=== PATIENT | female | born 1950 | race Caucasian/White ===

== ENCOUNTER 2018-01-05 13:03 | Outpatient (REF) | payer MEDICARE, BC, SELFPAY ==
[2018-01-07 11:45] LABS: HBs Antibody, Quant 43.8 mIU/mL; Hepatitis B Surface Ab Positive
[2018-01-07 12:32] LABS: Measles IgG Antibody Positive; Mumps Antibody IgG Negative (Negative); Rubella IgG Ab (UVM) Positive; Varicella IgG Antibody Positive
== END 2018-01-05 13:23 ==
LOC: NCHCN 13:03
PROVIDERS: PCP Family Medicine
DX: Z02.1 Encounter for pre-employment examination (principal); Z01.84 Encounter for antibody response examination
CPT/HCPCS: 86706; 86787; 86735; 86762; 86765

== ENCOUNTER 2018-02-15 08:13 | Day surgery (SDC) | payer MEDICARE, BC, SELFPAY ==
--- NOTE | 2018-02-15 06:25 | W.COLOREPORT ---
Date of service: 02/15/18 Time of Service: 09: Colonoscopy Report Date of procedure: 02/15/18 Pre-op diagnosis general: Colon Cancer screening/ Hx of polyps Post-op diagnosis procedure note: other (polyps x2) Procedure: Colonoscopy with polypectomy with cold forceps Surgeon: Sherri Cohn Anesthesia proc note operative: MAC (Cailin Hernandez CRNA/ ASA 2) Estimated blood loss (mL): 3 Pathology: other (ascending colon polyps x 2) Complications: None Disposition: same day Indications: Mrs. Bhagat is a pleasant 67-year-old female who was seen in the office for a colonoscopy. Risks, benefits and complications were reviewed with her and she wished to proceed no guarantees were given or implied Prep: Miralax/Dulcolax Procedure Start Time: : Procedure End Time: : Retraction Time: 16 Findings: 2 small sessile polyps in the ascending polyp Procedure Description: After informed consent was obtained the patient was taken to the procedure room and placed in a left decubitous position. Monitors were applied and a time out was done. The patients name, date of , procedure, allergies to medications and metal in their body was reviewed. The patient was then sedated. Once sedated and comfortable a rectal exam was done. External exam was normal. Internal exam revealed a normal sphincter tone and no palpable masses. The scope was then introduced and retro-flexed. No internal hemorrhoids were identified. The scope was then advanced to the cecum without difficulty. The TI and appendiceal orifice were identified. The prep was good. The scope was then slowly retracted over 16 minutes back into the rectum. 2 polyps were removed with cold forceps in the ascending colon. The scope was removed and the patient was woken up and taken back to Same day surgery in stable condition. The patient tolerated the procedure well and there were no immediate complications. Follow up: The patient should follow up in 3-5 years unless they develop changes in bowel habits or other new gastrointestinal complaints.
--- NOTE | 2018-02-15 06:27 | PDOC.DSDIS_ITS ---
Discharge Plan Disposition Patient Disposition: HOME Condition: Good Discharge Details Reason For Visit: Colonoscopy Attending Provider: Sherri Cohn Primary Care Provider: Michaela Garcia Home Meds and New Rx's Prescriptions: Continue calcium carbonate-vitamin D3 [Calcium 500 + D] 500 mg(1,250mg) -400 unit tablet 1 tab PO DAILY RF: 0 cholecalciferol (vitamin D3) 2,000 unit tablet 2,000 unit PO DAILY RF: 0 omega-3 fatty acids 1,000 MG capsule 1,000 mg PO DAILY RF: 0 vitamin B complex 1 EACH tablet 1 ea Sublingual DAILY RF: 0 multivitamin [Daily Multiple] 1 EACH tablet 1 ea PO DAILY RF: 0 Discontinued bisacodyl [Dulcolax (bisacodyl)] 5 mg tablet,delayed release (DR/EC) 5 mg PO ONCE Qty: 4 RF: 0 polyethylene glycol 3350 17 gram/dose powder 255 g PO ONCE Qty: 255 RF: 0 peg 3350-electrolytes 4,000 ML recon soln 4,000 ml PO as directed Qty: 4000 RF: 0 Discharge Instructions Instructions: Colonoscopy (DC) Additional Instructions: Findings: 2 small polyps Follow up: 3-5 years depending on final pathology Please call if you develop: fevers >101.5 Nausea or vomiting Abdominal pain that is not transient DAY SURGERY UNIT POST COLONOSCOPY INSTRUCTIONS 1. Because there will be medication in your system for the next 24 hours, you may feel a little sleepy. Your coordination will be affected. Therefore: a. Do not drive or operate dangerous equipment for 24 hours. b. Do not drink alcohol beverages for 24 hours (not even beer). c. Plan to go home and rest for the day. 2. Generally there are no restrictions on your activity after a day or so has gone by, but you may feel a bit fatigued for a few days. 3 After you arrive home you may have a light meal and return to a normal diet as you can tolerate it without feeling sick to your stomach. 4. After surgery, you may feel pain or discomfort. This should be only transient , but if it persists please contact your doctor. 5. If there are any questions regarding the findings of your procedure, please feel free to contact your doctor. 6. If you are unable to contact your doctor with a problem, contact the hospital at [phone]. 7. Continue all your regular medications unless directed otherwise. I understand the above instructions and have no questions. Signature of Patient or Responsible Adult Escort Date/Time Name of Responsible Adult Escort Signature of Nurse Date/Time Activity:: Activity as Tolerated Diet:: As Tolerated Discharge Orders Discharge Orders: Discharge Order (Routine); Ordered 02/15/18 Ordered By: Sherri Cohn DS: Diagnosis Discharge Diagnosis (1) Colon polyp: Status: Acute (2) S/P colonoscopy: Status: Acute
[2018-02-15 08:21] VITALS: BP 94/61; PULSE 80; RESP 16; TEMP 36.4; O2SAT 98
[2018-02-15] MEDS: Lactated Ringers 1,000 ML 80 ML IV (08:52)
--- NOTE | 2018-02-15 09:13 | BOWEL_PTH ---
PATIENT: Mallory Bhagat LOC: [facility] U#:[id number] AGE/SX: 67/F ROOM: RE02/15/[address]: Sherri Cohn MD : 1950 BED: DIS: 02/15/2018 SPEC #: [id number] RECD: 02/15/18 12:22 STATUS: JOSE ALBERTO REQ #: [id number] MYRA: 02/15/18 09:[address]: Sherri Cohn DEPT: Surgical Specimen RECD BY: Edilma Brenner ENTERED: 02/15/18 12:22 SP TYPE: Bowel OTHR DR: Michaela Garcia MD, DC Tissues: 1 - BIOPSY BOWEL Procedures: GROSS AND MICRO LEVEL 4 Comments: [id number]
[2018-02-15 10:02] VITALS: BP 134/78; PULSE 64; RESP 18; TEMP 36.6; O2SAT 100
[2018-02-15 10:04] VITALS: BP 134/78; PULSE 64; RESP 18; TEMP 36.6; O2SAT 100
== END 2018-02-15 10:18 | disposition home or self-care (01) ==
LOC: SUR 08:14
PROVIDERS: PCP Family Medicine; Visit Provider Surgery
PROC: 0DJD8ZZ Inspection of Lower Intestinal Tract, Via Natural or Artificial Opening Endoscopic (ICD-10-PCS; CPT 45378; principal; 2018-02-15 09:30)
DX: Z12.11 Encounter for screening for malignant neoplasm of colon (principal); D12.2 Benign neoplasm of ascending colon; Z86.010 Personal history of colon polyps
CPT/HCPCS: 45380; 88305

== ENCOUNTER 2018-05-26 13:46 | Emergency (ER) | payer MEDICARE, BC, SELFPAY ==
[2018-05-26 13:46] VITALS: BP 104/66; PULSE 77; RESP 16; TEMP 36.3; O2SAT 97
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
[2018-05-26 14:03] VITALS: BP 104/66; PULSE 77; RESP 16; TEMP 36.3; O2SAT 97
== END 2018-05-26 14:05 | disposition home or self-care (01) ==
LOC: ER 14:16
PROVIDERS: Emergency Provider Student in an Organized Health Care Education/Training Program; PCP Family Medicine
DX: T17.928A Food in respiratory tract, part unspecified causing other injury, initial encounter (principal); R09.89 Other specified symptoms and signs involving the circulatory and respiratory systems
CPT/HCPCS: 99283

== ENCOUNTER 2018-10-13 07:47 | Emergency (ER) | payer MEDICARE, BC, SELFPAY ==
[2018-10-13 07:51] VITALS: BP 107/58; PULSE 75; RESP 20; TEMP 36.4; O2SAT 99
--- NOTE | 2018-10-13 08:07 | DI.COMBO_ITS ---
SYMPTOM/DIAGNOSIS: POSTERIOR PAIN AND SWELLING LEFT LOWER EXTREMITY ULTRASOUND: The femoral and popliteal veins and visualized calf veins are freely compressible. No thrombus is visible. The doppler venous wave form augments normally. No Torrez's cyst or hematoma is seen. IMPRESSION: Negative left lower extremity ultrasound. No evidence of DVT. LEFT KNEE: No fracture or joint effusion is seen. The joint spaces are well maintained. There are no significant degenerative changes. IMPRESSION: Negative left knee.
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
[2018-10-13] MEDS: Acetaminophen 500 MG TAB 1000 MG PO (08:14)
[2018-10-13 09:35] VITALS: BP 107/58; PULSE 75; RESP 20; TEMP 36.4; O2SAT 99
== END 2018-10-13 09:36 | disposition home or self-care (01) ==
PROVIDERS: Emergency Provider Emergency Medicine; PCP Family Medicine
DX: M76.52 Patellar tendinitis, left knee (principal)
CPT/HCPCS: 73562; 99284; 93971

== ENCOUNTER 2019-11-12 15:41 | Emergency (ER) | payer MEDICARE, BC, SELFPAY ==
[2019-11-12 15:44] VITALS: BP 116/73; PULSE 76; RESP 20; TEMP 36.8; O2SAT 98
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
== END 2019-11-12 20:45 | disposition home or self-care (01) ==
LOC: ER 19:15
PROVIDERS: Emergency Provider Student in an Organized Health Care Education/Training Program; PCP Family Medicine
DX: S01.82XA Laceration with foreign body of other part of head, initial encounter (principal); S09.8XXA Other specified injuries of head, initial encounter; V43.53XA Car driver injured in collision with pick-up truck in traffic accident, initial encounter
CPT/HCPCS: 12011; 99284; 70450; 72125

== ENCOUNTER 2019-11-18 19:03 | Outpatient (CLI) | payer MEDICARE, BC, SELFPAY ==
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
== END 2019-11-18 19:23 ==
PROVIDERS: PCP Family Medicine; Visit Provider Nurse Practitioner Family
DX: R07.89 Other chest pain (principal)
CPT/HCPCS: 71046; 71110

== ENCOUNTER 2019-11-25 11:20 | Emergency (ER) | payer MEDICARE, BC, SELFPAY ==
[2019-11-25 11:23] VITALS: BP 111/63; PULSE 74; RESP 20; TEMP 36.6; O2SAT 98
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
[2019-11-25] MEDS: ACETAMINOPHEN 1,000 MG/100 ML BTL 400 MG IVPB (12:02)
[2019-11-25 12:03] VITALS: RESP 18
[2019-11-25 12:03] LABS: Anion Gap 10.1 mmol/L (3-11); BUN 17 mg/dL (7-18); CO2 25.9 mmol/L (21.0-32.0); CREATININE 0.88 mg/dL (0.55-1.02); Calcium 9.6 mg/dL (8.5-10.1); Chloride 103 mmol/L (98-107); Glucose 96 mg/dL (74-106); Potassium 4.2 mmol/L (3.5-5.1); Sodium 139 mmol/L (136-145)
[2019-11-25 12:08] LABS: Abs Immature Grans 0.01 10^3/uL (0.0-0.06); Absolute Basophil Count 0.03 10^3/uL (0.0-0.2); Absolute Eosinophil Count 0.11 10^3/uL (0.0-0.7); Absolute Lymphocyte Count 1.87 10^3/uL (1.2-3.4); Absolute Monocyte Count 0.41 10^3/uL (0.1-0.8); Absolute Neutrophil Count 2.09 10^3/uL (1.2-6.7); Basophils % 0.7; Eosinophils % 2.4; HCT 41.5 % (36.0-46.0); HGB 13.6 g/dL (11.2-15.7); Immature Grans % 0.2; Lymphocytes % 41.4; MCH 29.4 pg (27.0-33.0); MCHC 32.8 % (32.0-36.0); MCV 89.6 fL (80-95); MPV 10.7 fL (8.0-11.0); Monocytes % 9.1; Neutrophils % 46.2; Nucleated RBC 0 %; Platelet Count 244 10^3/uL (130-400); RBC 4.63 10^6/uL (3.93-5.22); RDW 13.7 % (11.7-14.6); RDW-SD 44.9 fL; WBC 4.52 10^3/uL (4.4-10.8)
[2019-11-25 12:49] VITALS: BP 94/64; PULSE 88; O2SAT 100
[2019-11-25 13:56] VITALS: BP 112/78; PULSE 56; RESP 18; O2SAT 100
== END 2019-11-25 14:10 | disposition home or self-care (01) ==
PROVIDERS: Emergency Provider Emergency Medicine; PCP Family Medicine
DX: S22.31XA Fracture of one rib, right side, initial encounter for closed fracture (principal); V43.53XA Car driver injured in collision with pick-up truck in traffic accident, initial encounter; R06.02 Shortness of breath
CPT/HCPCS: 36415; 80048; 96375; 99285; 71260; 85025; 99284; J0131

== ENCOUNTER 2019-12-05 01:54 | Outpatient (CLI) | payer MEDICARE, BC, SELFPAY ==
--- NOTE | 2019-12-05 08:15 | DI.US_ITS ---
EXAM: US THYROID CLINICAL HISTORY: 14mm right thyroid lobe lesion on cervical CT,E04.1. TECHNIQUE: Ultrasound thyroid performed using standard protocol. COMPARISON: No exams were available for comparison FINDINGS: ISTHMUS: 4 mm RIGHT LOBE: Size: 5.2 x 1.8 x 1.5 cm Echogenicity: Normal. Vascularity: Normal. Nodules: 2.3 x 1.3 x 1.8 centimeter mostly isoechoic smoothly marginated nodule with central spongifo rm appearance. No vascularity.. LEFT LOBE: Size: 4.7 x 1.5 x 1.4 cm Echogenicity: Normal. Vascularity: Normal. Nodules: None. OTHER FINDINGS: None. IMPRESSION: 2.3 centimeter benign appearing nodule at the lower pole of the right lobe thyroid. TI- RADS category 2. DATA REPOSITORY:
== END 2019-12-05 02:14 ==
PROVIDERS: PCP Family Medicine; Visit Provider Nurse Practitioner Family
DX: E04.1 Nontoxic single thyroid nodule (principal)
CPT/HCPCS: 76536

== ENCOUNTER 2019-12-05 03:03 | Outpatient (CLI) | payer MEDICARE, BC, SELFPAY | END 2019-12-05 03:23 | PROVIDERS: Nurse Practitioner Family; PCP Family Medicine; Visit Provider Family Medicine | DX: E04.1 Nontoxic single thyroid nodule (principal) | CPT/HCPCS: 36415; 76536; 84443 ==

== ENCOUNTER 2020-01-02 11:16 | Outpatient (REF) | payer SELFPAY ==
[2020-01-03 20:50] LABS: COVID-19 RT-PCR Result NEGATIVE (Negative)
== END 2020-01-02 11:36 ==
LOC: NCHCN 11:16
PROVIDERS: PCP Family Medicine; Visit Provider Nurse Practitioner Family
DX: Z20.828 Contact with and (suspected) exposure to other viral communicable diseases (principal)
CPT/HCPCS: U0003

== ENCOUNTER 2020-02-20 00:24 | Outpatient (CLI) | payer MEDICARE, BC, SELFPAY ==
--- NOTE | 2020-02-20 06:45 | DI.MAMMO_ITS ---
EXAM: MG MAMMO SCREENING CLINICAL HISTORY: screening,z12.39. TECHNIQUE: Bilateral full field digital CC and MLO mammographic images were obtained with 3D tomosyn thesis and utilizing computer aided detection (CAD). COMPARISON: Prior mammograms dating back to 2010, the most recent being October 2015. FINDINGS: Microcalcifications in the right breast exhibiting CAD designation appear vascular and were previousl y present. There are no spiculated masses nor malignant appearing microcalcification groups. Benign-appearing ly mph node posteriorly in left breast is unchanged. There is no significant architectural distortion n or skin thickening-retraction. IMPRESSION: Stable benign findings. No radiographic evidence of malignancy. BI-RADS Category 2 - Benign Findings Breast Density - Category B - Scattered areas of fibroglandular density Breast density Category C or D implies that the patient has dense breast tissue. Dense breast tissue can make it harder to find cancer on a mammogram. Dense breast tissue is also associated with an incr eased risk of breast cancer. This information about the result of the mammogram report was provided to the patient to raise their awareness. Use this report when you speak with the patient about their risks for breast cancer, which includes their family history. At that time, you may recommend additional screening tests (Ultrasoun d or MRI) as these tests may add significant information. A negative radiographic report should not delay biopsy if a dominant or clinically suspicious mass is present. Up to ten percent of cancers are not identified on mammography. A negative report may reinforce clinical impression. Adenosis and dense breasts may obscure an underlying neoplasm. False positive reports average 6 to 10%. Patient will receive a letter notifying them of these results.
== END 2020-02-20 00:44 ==
PROVIDERS: PCP Family Medicine; Visit Provider Family Medicine
DX: Z12.31 Encounter for screening mammogram for malignant neoplasm of breast (principal); R92.0 Mammographic microcalcification found on diagnostic imaging of breast
CPT/HCPCS: 77063; 77067

== ENCOUNTER 2020-04-19 10:01 | Emergency (ER) | payer MEDICARE, BC, SELFPAY ==
--- NOTE | 2020-04-19 10:00 | RT.EKG_ITS ---
APPROVED REPORT Exam: Resting ECG Patient Location: E HR:61 bpm ECG Measurements Heart Rate 61 AXIS SD 155 P 34 QRSd 103 QRS 9 QT 437 T 37 QTc 440 Conclusion Sinus rhythm...normal P axis, V-rate 60- 99
[2020-04-19 10:16] VITALS: BP 107/66; PULSE 67; RESP 18; TEMP 36.1; O2SAT 100
--- NOTE | 2020-04-19 10:29 | DI.RAD_ITS ---
EXAM: XR KNEE RT 3V AP,LAT,NICKI CLINICAL HISTORY: near syncope. TECHNIQUE: 2D digital imaging was performed. COMPARISON: CR XR knee LT 3V AP,lat,incki from 10/13/2018 FINDINGS: BONES: No acute fracture is present. No bony destructive lesion is seen. JOINTS: The knee is normally aligned. No joint effusion is seen. SOFT TISSUE: Normal. IMPRESSION: Unremarkable radiographs of the right knee. DATA REPOSITORY: RADIATION DOSE DELIVERED:
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
[2020-04-19 10:53] LABS: Abs Immature Grans 0.01 10^3/uL (0.0-0.06); Absolute Basophil Count 0.03 10^3/uL (0.0-0.2); Absolute Lymphocyte Count 1.65 10^3/uL (1.2-3.4); Absolute Monocyte Count 0.31 10^3/uL (0.1-0.8); Absolute Neutrophil Count 2.33 10^3/uL (1.2-6.7); Basophils % 0.7; Eosinophils % 2.3; HCT 37.7 % (36.0-46.0); Immature Grans % 0.2; Lymphocytes % 37.2; MCH 28.5 pg (27.0-33.0); MCHC 31.8 % (32.0-36.0); MCV 89.5 fL (80-95); MPV 10.3 fL (8.0-11.0); Neutrophils % 52.6; Nucleated RBC 0 %; Platelet Count 229 10^3/uL (130-400); RBC 4.21 10^6/uL (3.93-5.22); RDW 13.8 % (11.7-14.6); RDW-SD 45.4 fL; WBC 4.43 10^3/uL (4.4-10.8)
[2020-04-19 11:16] LABS: ALT 25 U/L (14-59); AST 23 U/L (15-37); Albumin 3.5 g/dL (3.4-5.0); Alkaline Phosphatase 85 U/L (46-116); Anion Gap 6.3 mmol/L (3-11); BUN 15 mg/dL (7-18); Bilirubin, Total 0.3 mg/dL (0.2-1.0); CO2 28.7 mmol/L (21.0-32.0); CREATININE 0.8 mg/dL (0.55-1.02); Calcium 9.1 mg/dL (8.5-10.1); Chloride 106 mmol/L (98-107); Glucose 107 mg/dL (74-106); Potassium 4.3 mmol/L (3.5-5.1); Sodium 141 mmol/L (136-145); Total Protein 7.3 g/dL (6.4-8.2)
[2020-04-19 11:17] LABS: Troponin I < 0.05 ng/mL (<0.06)
[2020-04-19] MEDS: Acetaminophen 500 MG TAB 1000 MG PO (11:25)
[2020-04-19 12:53] VITALS: BP 84/61; PULSE 72; RESP 18; TEMP 36.3; O2SAT 98
== END 2020-04-19 12:46 | disposition home or self-care (01) ==
PROVIDERS: Emergency Provider Emergency Medicine; PCP Family Medicine
DX: R55 Syncope and collapse (principal)
CPT/HCPCS: 36415; 36416; 73562; 80053; 82962; 93005; 99284; 84484; 85025; 93010

== ENCOUNTER → 2020-07-06 08:47 | Outpatient (BNVA) | payer MEDICARE, BC, SELFPAY | PROVIDERS: PCP Family Medicine; Referring Provider Family Medicine; Visit Provider Student in an Organized Health Care Education/Training Program | DX: S83.241A Other tear of medial meniscus, current injury, right knee, initial encounter (principal); X58.XXXA Exposure to other specified factors, initial encounter | CPT/HCPCS: 99213 ==

== ENCOUNTER 2020-07-09 02:05 | Outpatient (CLI) | payer MEDICARE, BC, SELFPAY ==
[2020-07-09 10:40] LABS: Source Nasal/Nares
[2020-07-09 12:50] LABS: COVID-19 PCR Negative (Negative)
== END 2020-07-09 02:06 | disposition home or self-care (01) ==
LOC: LBO 02:05
PROVIDERS: PCP Family Medicine; Visit Provider Student in an Organized Health Care Education/Training Program
DX: Z20.822 Contact with and (suspected) exposure to COVID-19 (principal); Z01.818 Encounter for other preprocedural examination
CPT/HCPCS: 87635

== ENCOUNTER 2020-07-10 10:01 | Day surgery (SDC) | payer MEDICARE, BC, SELFPAY ==
[2020-07-10] VITALS (10 sets, daily range): BP systolic 82–111; BP diastolic 47–65; PULSE 56–75; RESP 15–21; TEMP 35.9–36.4; TEMPC 36.1; O2SAT 96–99; BMI 23.4
--- NOTE | 2020-07-10 10:00 | PDOC.DSDIS_ITS ---
Discharge Plan Disposition Patient Disposition: HOME Condition: Stable Discharge Details Reason For Visit: R KNEE MEDIAL MENISCUS TEAR Attending Provider: Shen Shea Primary Care Provider: Michaela Garcia Home Meds and New Rx's Prescriptions: New hydrocodone-acetaminophen 5-325 mg tablet 1 tab PO Q6H PRNQty: 5 RF: 0 acetaminophen [Tylenol Extra Strength] 500 mg tablet 500 mg PO Q6H PRNQty: 90 RF: 0 ibuprofen 600 mg tablet 600 mg PO TID Qty: 90 RF: 0 Continued citalopram 20 mg tablet 20 mg PO DAILY Qty: 90 RF: 8 mecobalamin (vitamin B12) 1,000 mcg tablet,disintegrating 1,000 mcg sublingual DAILY RF: 0 bupropion HCl [Wellbutrin SR] 150 mg tablet sustained-release 12 hr 150 mg PO QAM Qty: 90 RF: 4 cholecalciferol (vitamin D3) 2,000 unit tablet 2,000 unit PO DAILY RF: 0 multivitamin [Daily Multiple] 1 EACH tablet 1 ea PO DAILY RF: 0 diclofenac sodium 3 % gel 1 applic topical BID PRN (Reason: pain) Qty: 100 RF: 0 Discharge Instructions Stand Alone Forms: [facility] Referrals: Shen Shea MD [ [facility] STAFF PHYSICIAN] - Equipment/Supplies: Partial Weight Bearing Crutches Activity:: Activity as Tolerated Remove Dressings/Wound Care:: 72 hours Shower/Bathe:: 72 hours Diet:: As Tolerated Discharge Orders Discharge Orders: Discharge Order (Routine); Ordered 07/10/20 Ordered By: Allie Toledo DS: Diagnosis Discharge Diagnosis (1) Tear of medial meniscus of right knee: Status: Acute
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
[2020-07-10] MEDS: Lactated Ringers 1,000 ML 80 ML IV (10:39)
[2020-07-10] MEDS: Acetaminophen 500 MG TAB 1000 MG PO (10:44)
[2020-07-10] MEDS: Celecoxib 200 MG CAP 400 MG PO (10:44)
[2020-07-10] MEDS: ceFAZolin 2 GM/50 ML BAG IVPB (12:17)
[2020-07-10] MEDS: Bupivacaine 0.5% Pres-Free 30 ML VIAL (12:44)
--- NOTE | 2020-07-10 13:15 | W.ANESPOSTOP ---
Postoperative Evaluation Date, Time and Location Date Performed: 07/10/20 Time Performed: 13:24 Patient Location: PACU Vital Signs Most Recent Imported Vital Signs: Most Recent Vital Signs Temp Pulse Resp BP Pulse Ox 35.9 C L 66 16 111/65 96 07/10/20 10:24 07/10/20 10:24 07/10/20 10:24 07/10/20 10:24 07/10/20 10:24 Most Recent Manually Entered Vital Signs: Adult Blood Pressure: 82/57 Heart Rate: 75 Respirations: 16 Oxygen Saturation (%): 97 Temperature (C): 36.1 C Pain Score (0-10 Scale): 0 Pain Score Most Recent Pain Score: Most Recent Pain Score Pain Level 0 07/10/20 10:24 Assessment Mental Status: Awake (Alert & Oriented to Patient Baseline) Airway and Respiratory Function: Patent airway with normal (patient baseline) respiratory exam Cardiovascular Function: Hemodynamically Stable Hydration Status: Adequately Hydrated Nausea & Vomiting: No Nausea or Vomiting Pain: Pt. Denies Any Pain Peripheral Nerve Block: Patient did not receive a nerve block Postoperative Comments:: denies dizziness
--- NOTE | 2020-07-10 18:49 | W.PM.OP ---
Date of service: 07/10/20 Time of Service: 13:06 Operative Note Operative Note DATE OF PROCEDURE: 07/10/20 PRE-OP DIAGNOSIS: Right Knee Medial Meniscus Tear POST-OP DIAGNOSIS: same Right Knee Lateral Meniscus Tear PROCEDURE: Right Knee Arthroscopic Partial Lateral and Medial Menisectomies SURGEON: Shen Shea ANESTHESIA TYPE: Spinal Refer to Anesthesia Record ESTIMATED BLOOD LOSS: 5 PATHOLOGY: none sent TOURNIQUET TIME: 0 COMPLICATIONS: None Patient was transported to: PACU Patient's condition: stable Indications: I have seen Mallory in clinic for symptoms of a meniscus tear. This was confirmed based on MRI and exam findings. Nonoperative measures were exhausted but disability and pain persisted. I discussed knee arthroscopy with meniscal intervention with the patient. I reviewed the risks of the procedure to include, but not limited to, bleeding, infection, pain, stiffness, damage to nerves or vessels, recurrence, blood clot. Despite these risks, the patient elected to proceed. Findings: A diagnostic arthroscopy was performed with the following findings: Suprapatellar Pouch: Mild inflammatory changes, No loose bodies Medial Compartment: Complex medial meniscus tear with a radial tear at the root which appears older, Minimal peripheral attachments to the root, Central Grade III chondromalacia of the femur, No loose bodies Notch: ACL and PCL were intact but with significant synovitis Lateral Compartment: Complex tearing at the posterior root, Intact meniscal root, Grade I chondromalacia, No loose bodies Patellofemoral Compartment: Grade I chondromalacia of the patella, Mild lateral maltracking Procedure Description: Mallory was greeted in the preoperative holding area where the correct side was identified and marked. The consent was reviewed with the patient and signed. The history and physical was updated. All questions were answered. She was taken back to the operating room. The patient was placed into the supine position on the operating room table. A nonsterile tourniquet was placed high onto the leg but not used. All bony prominences were well padded. Prophylactic antibiotics in the form of Cefazolin were administered. The right leg was then prepped with Chloraprep and draped in a standard fashion with stockinette and extremity drape. A timeout to confirm correct identity, side and site, procedure, allergies, anesthesia, and medical concerns was performed. The leg was placed into a pneumatic leg gabriel, SPIDER2. A standard lateral portal was made at the lateral border of the patella tendon in line with the inferior pole of the patella, soft spot. The skin and deep tissue was incised sharply and the blunt trochar was inserted atraumatically. A diagnostic arthroscopy was performed and the findings are listed above. The suprapatellar pouch had mild inflammatory changes. The patellofemoral articulation showed mild chondral wear as well as mild lateral maltracking which improved at 45 degrees of flexion. The lateral gutter had no loose bodies and the medial gutter had no loose bodies. The knee was brought into some valgus stress in extension to open the medial compartment. A medial portal was made, localized by a spinal needle. The portal was created with an #11 blade through skin and capsule under direct visualization avoiding any meniscal injury. A probe was then inserted into the medial compartment. The medial compartment was fully inspected. The chondral surface of the tibia showed Grade i chondromalacia and the surface of the femur showed an area of mixed Grade II and Grade III chondromalacia. There may be some areas of bone exposed in this but most was covered with a cartilage base layer or fibrous tissue. The medial meniscus had two apparent tears. There was a radial type tear just medial to the posterior root. This was blunted and scarred and appeared to be old. I probed it and it was not detached from the capsule. At the level of the horn, there was an undersurface complex tear in which the probe easily fell. After evaluation, the meniscus was debrided down to a stable base using a series of biters and arthroscopic jason. It was probed afterwards to confirm that the tear had been removed and the meniscus was stable. The root tear was not debrided since it was scarred and stable without any loose fragments. The notch was then inspected which showed an intact ACL and an intact PCL. The leg was then brought into a figure of 4 position. The lateral compartment was fully inspected with the arthroscope and a probe. The chondral surface of the lateral femur showed no significant chondromalacia. The chondral surface of the lateral tibia showed Grade I chondromalacia. The lateral meniscus had a complex tear at the level of the root but without disruption of the root. After evaluation, the meniscus was debrided down to a stable base using a series of biters and arthroscopic jason. It was probed afterwards to confirm that the tear had been removed and the meniscus was stable. The arthroscope was brought back into the suprapatellar pouch and the leg was in full extension. The knee was thoroughly irrigated with the arthroscopic fluid on high flow and pressure. Inflow was stopped and excess fluid was removed. The wounds were closed with 4-0 Nylon. They were dressed with Xeroform, 4x4 gauze, ABD pad, Kerlix and an ROYAL wrap. A cryo-cuff was applied. The patient tolerated the procedure well and was returned to the [facility] Surgery area in a stable condition suffering no known complication.
== END 2020-07-10 15:13 | disposition home or self-care (01) ==
LOC: SUR 10:02
PROVIDERS: PCP Family Medicine; Visit Provider Student in an Organized Health Care Education/Training Program
PROC: (CPT 29870; principal; 2020-07-10 13:00)
DX: S83.231A Complex tear of medial meniscus, current injury, right knee, initial encounter (principal); S83.271A Complex tear of lateral meniscus, current injury, right knee, initial encounter; X58.XXXA Exposure to other specified factors, initial encounter; M94.261 Chondromalacia, right knee; F32.9 Major depressive disorder, single episode, unspecified; K59.00 Constipation, unspecified; G57.00 Lesion of sciatic nerve, unspecified lower limb
CPT/HCPCS: 29880; J0690; J2001; J2250

== ENCOUNTER → 2020-07-23 08:57 | Outpatient (BNVA) | payer MEDICARE, BC, SELFPAY | PROVIDERS: PCP Family Medicine; Referring Provider Family Medicine; Visit Provider Physician Assistant | DX: Z47.89 Encounter for other orthopedic aftercare (principal) ==

== ENCOUNTER 2021-09-13 08:58 | Outpatient (CLI) | payer MEDICARE, SELFPAY ==
--- NOTE | 2021-09-13 08:45 | DI.RAD_ITS ---
Exam(s) XR KNEE RT 3V AP,LAT,NICKI EXAM: XR KNEE RT 3V AP,LAT,NICKI CLINICAL HISTORY: pain. TECHNIQUE: 2D digital imaging was performed. Three views. COMPARISON: CR XR KNEE RT 3V AP,LAT,NICKI from 04/19/2020 FINDINGS: BONES: No acute fracture is present. No bony destructive lesion is seen. JOINTS: There is moderate to severe narrowing of the medial femoral tibial joint space and mild peria rticular spurring. This is not seen previously. There is mild varus angulation. There is minimal s purring at the articular aspect of the patella. There is an enthesophyte at the quadriceps insertion . No joint effusion is seen. SOFT TISSUE: Normal. IMPRESSION: Moderate to severe degenerative changes of the medial femoral tibial joint. DATA REPOSITORY: RADIATION DOSE DELIVERED:
--- NOTE | 2021-09-13 08:45 | DI.RAD_ITS ---
Exam(s) XR KNEE LT 3V AP,LAT,NICKI EXAM: XR KNEE LT 3V AP,LAT,NICKI CLINICAL HISTORY: pain in knee. TECHNIQUE: 2D digital imaging was performed. Three views. COMPARISON: CR XR knee LT 3V AP,lat,nicki from 10/13/2018 MR MR KNEE RIGHT WO CONTRAST from 05/09/2020 FINDINGS: BONES: No acute fracture is present. No bony destructive lesion is seen. JOINTS: There is moderate to severe narrowing of the medial femoral tibial joint, similar to the cont ralateral knee. There is periarticular spurring. The findings are new since the previous exam. The re is mild varus angulation. There is mild spurring at the articular aspect of the patella. There i s a small enthesophyte at the quadriceps insertion.. No joint effusion is seen. SOFT TISSUE: Normal. IMPRESSION: Moderate to severe degenerative changes of the medial femoral tibial joint. DATA REPOSITORY: RADIATION DOSE DELIVERED:
== END 2021-09-13 08:59 | disposition home or self-care (01) ==
LOC: DIORS 08:59
PROVIDERS: PCP Family Medicine; Referring Provider Family Medicine; Visit Provider Physician Assistant Surgical
DX: M25.562 Pain in left knee (principal); Z98.890 Other specified postprocedural states; M25.561 Pain in right knee
CPT/HCPCS: 20610; 73562; J1040

== ENCOUNTER 2021-10-16 03:22 | Outpatient (CLI) | payer MEDICARE, SELFPAY ==
[2021-10-16 11:14] LABS: ALT 24 U/L (14-59); AST 25 U/L (15-37); Albumin 3.7 g/dL (3.4-5.0); Alkaline Phosphatase 81 U/L (46-116); Anion Gap 6.4 mmol/L (3-11); BUN 12 mg/dL (7-18); Bilirubin, Total 0.4 mg/dL (0.2-1.0); CO2 29.6 mmol/L (21.0-32.0); CREATININE 0.7 mg/dL (0.55-1.02); Calcium 9.4 mg/dL (8.5-10.1); Chloride 107 mmol/L (98-107); Glucose 94 mg/dL (74-106); Potassium 4.1 mmol/L (3.5-5.1); Sodium 143 mmol/L (136-145); TSH (W/Ref FT4) 2.13 uIU/mL (0.36-3.74); Total Protein 7.3 g/dL (6.4-8.2); Vitamin B12 1458 pg/mL (193-986)
== END 2021-10-16 03:23 | disposition home or self-care (01) ==
LOC: LBO 03:22
PROVIDERS: PCP Family Medicine; Visit Provider Family Medicine
DX: E04.1 Nontoxic single thyroid nodule (principal); E53.8 Deficiency of other specified B group vitamins; R53.83 Other fatigue; K59.00 Constipation, unspecified
CPT/HCPCS: 36415; 80053; 82607; 84443

== ENCOUNTER → 2021-12-06 00:29 | Outpatient (CLI) | payer MEDICARE, SELFPAY ==
--- NOTE | 2021-12-06 14:35 | DI.DEXA_ITS ---
Exam(s) XR DEXA BONE DENSITY W/WO PETER EXAM: XR DEXA BONE DENSITY W/WO PETER CLINICAL HISTORY: osteoporosis, m81.0 TECHNIQUE: COMPARISON: CR LUMBAR SPINE COMPLETE from 10/03/2013 FINDINGS: DEXA scan was performed according to the usual protocol. Please see the accompanying data sheets. Findings for left hip scanning are T-score -3.1 and left femoral neck T-score -2.2. Prior examinatio n of February 25 0 4 showed left hip T-score -1.3. Lumbar spine scanning shows T-score -1.6. prior examination of 2003 showed lumbar T-score -0.5. Right forearm scanning shows T-score -4.5. IMPRESSION: Measurements are consistent with osteoporosis according to the WHO criteria. Lateral vertebral scano gram shows no evidence of a vertebral compression fracture. RADIATION DOSE DELIVERED: Total DLP
--- NOTE | 2021-12-06 14:50 | DI.MAMMO_ITS ---
Exam(s) MAMMO SCREENING EXAM: MAMMO SCREENING CLINICAL HISTORY: screening,z12.39 TECHNIQUE: Mammograms were interpreted according to the usual protocol including computer analysis w [employer] CAD system, tomosynthesis and C-view imaging. COMPARISON: FINDINGS: The breasts are moderate density with fairly symmetrical distribution of fibroglandular tissue. No d ominant mass or clumped microcalcification is identified in either breast. The current examination i s compared with previous examinations including February 2020 and there has been no gross interval ch dominguez in appearance in comparison with the prior studies. IMPRESSION: No specific evidence of malignancy at this time. Routine screening examinations are suggested at yea rly intervals in this age group according to the ACS ACR guidelines. BI-RADS Category 1 - Negative Breast Density - Category B - Scattered areas of fibroglandular density
== END ==
PROVIDERS: PCP Family Medicine; Visit Provider Family Medicine
DX: M81.0 Age-related osteoporosis without current pathological fracture (principal); Z12.31 Encounter for screening mammogram for malignant neoplasm of breast; Z13.820 Encounter for screening for osteoporosis
CPT/HCPCS: 77063; 77067; 77080

== ENCOUNTER → 2022-01-14 02:30 | Outpatient (CLI) | payer MEDICARE, SELFPAY ==
--- NOTE | 2022-01-14 07:45 | DI.US_ITS ---
Exam(s) US THYROID EXAM: US THYROID CLINICAL HISTORY: thyroid nodule,e04.1. TECHNIQUE: Ultrasound thyroid performed using standard protocol. COMPARISON: US US THYROID from 12/05/2019 FINDINGS: ISTHMUS: 2.7 mm RIGHT LOBE: Size: 5.4 x 1.9 x 1.8 cm Echogenicity: Normal. Vascularity: Normal. Nodules: There is a mixed cystic and solid nodule in the lower pole of the right thyroid lobe. It me asures 2.2 cm long by 1.8 cm transverse by 1.3 cm AP. It is isoechoic with calcifications seen inter janice. It is consistent with a TI rads level 3 nodule. Based on its size follow-up is recommended. This was present on the prior examination. LEFT LOBE: Size: 4.3 x 1.5 x 1.4 cm Echogenicity: Normal. Vascularity: Normal. Nodules: None. OTHER FINDINGS: None. IMPRESSION: 2.2 x 1.8 x 1.3 cm right thyroid nodule. Follow-up is recommended. Please see the above discussion for complete details. DATA REPOSITORY:
== END ==
PROVIDERS: PCP Family Medicine; Visit Provider Family Medicine
DX: E04.1 Nontoxic single thyroid nodule (principal)
CPT/HCPCS: 76536

== ENCOUNTER 2022-03-19 03:10 | Outpatient (CLI) | payer MEDICARE, SELFPAY ==
[2022-03-19 14:02] LABS: Vitamin D 25 Total 91.5 ng/mL (30-100)
== END 2022-03-19 03:11 | disposition home or self-care (01) ==
LOC: LBO 03:10
PROVIDERS: PCP Family Medicine; Visit Provider Nurse Practitioner Family
DX: M81.0 Age-related osteoporosis without current pathological fracture (principal)
CPT/HCPCS: 36415; 82306

== ENCOUNTER → 2022-08-18 12:52 | Outpatient (BNVA) | payer MEDICARE, SELFPAY | PROVIDERS: PCP Family Medicine; Referring Provider Family Medicine; Visit Provider Student in an Organized Health Care Education/Training Program | DX: M17.11 Unilateral primary osteoarthritis, right knee (principal); M17.12 Unilateral primary osteoarthritis, left knee; Z98.890 Other specified postprocedural states | CPT/HCPCS: 20610; J1040 ==

== ENCOUNTER → 2022-12-29 12:59 | Outpatient (BNVA) | payer MEDICARE, SELFPAY | PROVIDERS: PCP Family Medicine; Referring Provider Family Medicine; Visit Provider Surgery | DX: Z12.11 Encounter for screening for malignant neoplasm of colon (principal); Z86.010 Personal history of colon polyps; Z80.0 Family history of malignant neoplasm of digestive organs ==

== ENCOUNTER 2023-01-12 08:59 | Day surgery (SDC) | payer MEDICARE, SELFPAY ==
--- NOTE | 2023-01-11 18:00 | W.PM.DSUDISC ---
Date of service: 01/12/23 Time of Service: 10:29 Discharge Plan Disposition Patient Disposition: Home Condition: Good Discharge Details Reason For Visit: screening colonoscopy Attending Provider: Gilbert Sinclair Primary Care Provider: Michaela Garcia Home Meds and New Rx's Prescriptions: Continued mecobalamin (vitamin B12) 1,000 mcg tablet,disintegrating 1,000 mcg sublingual DAILY Rx Instructions: place tablet under tongue and allow to dissolve for at least30 secs before swallowing zinc 50 mg tablet 50 mg PO DAILY cholecalciferol (vitamin D3) 2,000 unit tablet 2,000 unit PO DAILY alendronate 70 mg tablet 70 mg PO QWEEK Qty: 14 4RF iVizia (PF) 0.5 % drops 1 drp ophthalmic (eye) QID PRN ibuprofen 600 mg tablet 600 mg PO TID PRN acetaminophen [Tylenol Extra Strength] 500 mg tablet 500 mg PO Q6H PRNQty: 90 0RF Discontinued bisacodyl [Dulcolax (bisacodyl)] 5 mg tablet,delayed release (DR/EC) 5 mg PO ONCE Qty: 4 0RF Rx Instructions: Take per colonoscopy instructions provided by ordering providers office polyethylene glycol 3350 17 gram/dose powder 17 g PO ONCE Qty: 238 0RF Rx Instructions: Take per colonoscopy instructions provided by ordering providers office Discharge Instructions Instructions: Colorectal Polyps (GEN) Additional Instructions: Mallory, we were able to complete your colonoscopy today without any difficulty. I did find 2 small areas that look like polyps. I removed these areas completely. There is nothing worrisome to the naked eye, but I will send them off for testing to be certain on the nature of the tissue. The results of that report will indicate when you should have your next colonoscopy. I will be in touch at that point. If you have any questions in the meantime, please do not hesitate to contact me. 1. If tolerated, consume a soft, low fiber diet for 1-2 days. 2[address] Do not drive, drink alcohol, operate machinery, make critical decisions, or do activities that require coordination or balance for 24 hours. 3. Because air was put into your colon during the procedure, expelling air from your rectum (passing gas or farting) is normal. 4. You may not have a bowel movement for 1-3 days because of the colonoscopy prep. This is normal. 5. Go directly to the emergency room if you notice any of the following: Develop chills (warm to touch), or if you have a thermometer and your temperature is above 101 Difficulty breathing or difficultly swallowing Persistent vomiting Severe abdominal pain, other than gas cramps Severe chest pain Black, tarry stools Any bleeding ? exceeding one tablespoon 6. Call your physician if the site where your intravenous was started becomes red, swollen, painful, and warm to touch. 7. Your physician has reviewed your pre-procedure medications. Please continue to take those medications as previously ordered. You will be given specific information/education regarding any changes to your medications before leaving. Stand Alone Forms: Anesthesia Discharge InstAltagracia Veliz (DSU) Activity:: Activity as Tolerated Diet:: As Tolerated Discharge Orders Discharge Orders: Discharge Order (Routine); Ordered 01/11/23 Ordered By: Gilbert Sinclair DS: Diagnosis Discharge Diagnosis (1) Screen for colon cancer: Status: Acute Asessment and Plan: Follow-up on polypectomy results
--- NOTE | 2023-01-11 18:01 | COLE_ITS ---
Date of service: 01/12/23 Time of Service: 10:31 Colonoscopy Report Date of procedure: 01/12/23 Pre-op diagnosis general: screening clonoscopy Post-op diagnosis procedure note: other (Colon polyps) Procedure: Colonoscopy with polypectomy Surgeon: Gilbert Sinclair Anesthesia Type: General:No Airway Estimated blood loss (mL): 5 Pathology: other (Polyps x2 at 20 cm from the anus) Complications: None Disposition: same day Indications: Mallory is 72 years old. She has a history of adenomatous polyps. She is here for another screening colonoscopy Prep: Miralax/Dulcolax Procedure Start Time: 10:01 Procedure End Time: 10:19 Retraction Time: 13 Findings: Polyps at 20 cm from the anus x2 Procedure Description: After the induction of monitored anesthetic care, and with the patient in left lateral decubitus position, I began by performing an external anorectal exam.? Perineum and skin were normal, as was the anal verge.? There was no evidence of external hemorrhoids.? Next, I performed a digital rectal exam.? I did do not appreciate any abnormal findings.? Next, I advanced a colonoscope into the rectal vault.? I performed retroflexion.? This was normal.? Using insufflation, I then advanced the colonoscope beyond the rectal folds and into the sigmoid colon before advancing towards the cecum.? The scope was noted to be in the cecum by identification of the ileocecal valve and appendiceal orifice.? I then began withdrawing the colonoscope using repeated irrigation as necessary for full evaluation of the colonic mucosa. Around 20 cm from the anal verge were 2 small areas of mucosal abnormality. They were both sessile. They appeared to be very small polyps. I removed these both with cold forcep polypectomy. Each area was less than 0.25 cm. There was minimal bleeding. Once the scope was withdrawn to the level of the rectum, great care was taken to examine portions of the rectal folds.? Finally, the scope was withdrawn and the patient was brought to the same-day surgery recovery unit as the anesthetic wore off. ?The findings and instructions were shared with the patient prior to discharge. [place] Bowel Prep [place] Bowel Prep Right Colon: 3 Left Colon: 3 Transverse Colon: 3 Total Score: 9
[2023-01-12 09:14] VITALS: BP 102/72; PULSE 88; RESP 20; TEMP 36.4; O2SAT 98
[2023-01-12] MEDS: Lactated Ringers 1,000 ML 80 ML IV (09:40)
[2023-01-12 09:53] VITALS: BMI 24.5
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
--- NOTE | 2023-01-12 10:17 | BOWEL_PTH ---
PATIENT: Mallory Bhagat LOC: [facility] U#:[id number] AGE/SX: 72/F ROOM: RE01/12/[address]: Gilbert Sinclair MD : 1950 BED: DIS: 01/12/2023 SPEC #: [id number] RECD: 01/12/23 12:36 STATUS: JOSE ALBERTO REEmile #: [id number] MYRA: 01/12/23 10:[address]: Gilbert Sinclair DEPT: Surgical Specimen RECD BY: Edilma Brenner ENTERED: 01/12/23 12:36 SP TYPE: Bowel OTHR DR: Michaela Garcia MD, DC Tissues: 1 - BIOPSY BOWEL Procedures: GROSS AND MICRO LEVEL 4 Comments: [id number]
[2023-01-12 10:24] VITALS: BP 104/69; PULSE 71; RESP 18; TEMP 36.4; O2SAT 98
--- NOTE | 2023-01-12 10:36 | W.ANESPOSTOP ---
Postoperative Evaluation Date, Time and Location Date Performed: 01/12/23 Time Performed: 10:37 Patient Location: Day Surgery Unit Vital Signs Most Recent Imported Vital Signs: Most Recent Vital Signs Temp Pulse Resp BP Pulse Ox 36.4 C L 71 18 104/69 98 01/12/23 10:24 01/12/23 10:24 01/12/23 10:24 01/12/23 10:24 01/12/23 10:24 Pain Score Most Recent Pain Score: Most Recent Pain Score Pain Level 0 01/12/23 09:14 Assessment Mental Status: Awake (Alert & Oriented to Patient Baseline) Airway and Respiratory Function: Patent airway with normal (patient baseline) respiratory exam Cardiovascular Function: Hemodynamically Stable Hydration Status: Adequately Hydrated Nausea & Vomiting: No Nausea or Vomiting Pain: Pt. Denies Any Pain Peripheral Nerve Block: Patient did not receive a nerve block
[2023-01-12 10:51] VITALS: BP 102/79; PULSE 73; RESP 18; TEMP 36.5; O2SAT 97
== END 2023-01-12 09:00 | disposition home or self-care (01) ==
LOC: SUR 08:59
PROVIDERS: PCP Family Medicine; Visit Provider Surgery
PROC: 0DJD8ZZ Inspection of Lower Intestinal Tract, Via Natural or Artificial Opening Endoscopic (ICD-10-PCS; CPT 45378; principal; 2023-01-12 10:30)
DX: Z12.11 Encounter for screening for malignant neoplasm of colon (principal); K63.5 Polyp of colon; Z86.010 Personal history of colon polyps
CPT/HCPCS: 45380; 88305; J2001

== ENCOUNTER → 2023-01-15 00:53 | Outpatient (CLI) | payer MEDICARE, SELFPAY ==
--- NOTE | 2023-01-15 | DI.US_ITS ---
Exam(s) US THYROID EXAM: US THYROID CLINICAL HISTORY: E04.1 THYROID NODULE 1 YEAR FU. TECHNIQUE: Ultrasound thyroid performed using standard protocol. COMPARISON: US US THYROID from 01/14/2022 FINDINGS: Both thyroid lobes again exhibit normal size. There is a solitary nodule in the right lobe again not ed. RIGHT THYROID LOBE: Measures 1.7 cm AP x 1.7 cm wide x 5.1 cm craniocaudal With respect to the previously described right lobe nodule... Size: This nodule measures 1.8 cm widex1.3 cm AP x 2.4 cm craniocaudal Composition: Mixed [id number]-[id number]-7 point Echogenicity: The solid component is isoechoic to the gland-1 point Shape: Wider than taller in the transverse plane-0 points Margin: Smooth- 0 points Echogenic Foci: There are punctate echogenic foci within this nodule-3 points Total Points for this nodule: 5 ACR Ti-Rads Category: TR4 This TR 4 nodule should undergo ultrasound-guided FNA as it measures greater than 1.5 cm. LEFT THYROID LOBE: Measures 1.3 cm AP x 1.4 wide x 3.8 cm craniocaudal There are no nodules in the left lobe nor within the isthmus. LYMPH NODES: There is no significant adenopathy. IMPRESSION: 1. There is a solitary mixed solid-cystic nodule in the right lobe with specifics as described above. This is a TiRads level 4 nodule and should undergo ultrasound-guided FNA as it measures greater adriana n 1.5 cm. This nodule presently measures 2.4 cm maximum measurement which is in the craniocaudal sia ne 2. There are no nodules in the left lobe nor in the isthmus. 3. There is no significant lymphadenopathy. DATA REPOSITORY:
== END ==
PROVIDERS: PCP Family Medicine; Visit Provider Registered Nurse Maternal Newborn
DX: Z12.31 Encounter for screening mammogram for malignant neoplasm of breast (principal); E04.1 Nontoxic single thyroid nodule
CPT/HCPCS: 76536

== ENCOUNTER → 2023-01-15 00:54 | Outpatient (CLI) | payer MEDICARE, SELFPAY ==
--- NOTE | 2023-01-15 12:15 | DI.MAMMO_ITS ---
Exam(s) MAMMO SCREENING EXAM: MAMMO SCREENING CLINICAL HISTORY: screening Z12.39 FOR BREAST CANCER. TECHNIQUE: Bilateral full field digital CC and MLO mammographic images were obtained with 3D tomosyn thesis and utilizing computer aided detection (CAD). COMPARISON: Prior mammograms were reviewed. FINDINGS: There has been no significant change in the appearance and distribution of the fibroglandular tissue. Benign-appearing lymph node posteriorly in left breast is unchanged from prior studies. There are no new spiculated masses nor malignant appearing microcalcification groups. There is no significant architectural distortion nor skin thickening-retraction. IMPRESSION: No radiographic evidence of malignancy. BI-RADS Category 1 - Negative Breast Density - Category B - Scattered areas of fibroglandular density Breast density Category C or D implies that the patient has dense breast tissue. Dense breast tissue can make it harder to find cancer on a mammogram. Dense breast tissue is also associated with an incr eased risk of breast cancer. This information about the result of the mammogram report was provided to the patient to raise their awareness. Use this report when you speak with the patient about their risks for breast cancer, which includes their family history. At that time, you may recommend additional screening tests (Ultrasoun d or MRI) as these tests may add significant information. A negative radiographic report should not delay biopsy if a dominant or clinically suspicious mass is present. Up to ten percent of cancers are not identified on mammography. A negative report may reinforce clinical impression. Adenosis and dense breasts may obscure an underlying neoplasm. False positive reports average 6 to 10%. Patient will receive a letter notifying them of these results.
== END ==
PROVIDERS: PCP Family Medicine; Visit Provider Family Medicine
DX: Z12.31 Encounter for screening mammogram for malignant neoplasm of breast (principal); R92.323 Mammographic fibroglandular density, bilateral breasts
CPT/HCPCS: 77063; 77067

== ENCOUNTER → 2023-01-20 00:44 | Outpatient (CLI) | payer MEDICARE, SELFPAY ==
--- NOTE | 2023-01-20 07:45 | DI.US_ITS ---
Exam(s) US NEEDLE LOCAL OTHER WO RAD EXAM: US NEEDLE LOCAL OTHER WO RAD CLINICAL HISTORY: right thyroid nodule TR4,ultraosund guided bx,e04.1. COMPARISON: US US THYROID from 01/15/2023 TECHNIQUE: Ultrasound was provided for Dr. Adams for guidance with performing thyroid biopsy.. FINDINGS: Please see procedure note for details. DATA REPOSITORY:
--- NOTE | 2023-01-20 12:50 | PAPNONF_PTH ---
PATIENT: Mallory Bhagat LOC: [facility] U#:[id number] AGE/SX: 75/F ROOM: RE01/20/[address]: Edna Sanchez : 1950 BED: DIS: SPEC #: [id number] RECD: 01/20/23 13:18 STATUS: JOSE ALBERTO REQ #: [id number] MYRA: 01/20/23 12:[address]: Edna Sanchez DEPT: [facility] Cytology RECD BY: Edilma Brenner ENTERED: 01/20/23 13:18 SP TYPE: YAW AL DR: Michaela Garcia MD, DC Tissues: 1 - BODY FLUID CYTO-FINE NEEDLE ASPIRATE-[facility] Procedures: BODY FLUID CYTO-FINE NEEDLE ASPIRATE-[facility] Comments: [id number] (PATH FNA CONSULT) (REFRIGERATED)
--- NOTE | 2023-01-20 13:09 | W.PROCNOTE ---
Date of service: 01/20/23 Time of Service: 13:09 Procedure Note Date of procedure: 01/20/23 Procedure: Ultrasound-guided FNA, right thyroid nodule, pathology present Procedure Diagnosis: Right thyroid nodule, TR 4, 2. 4 cm Procedure Indications: Patient has a right-sided TR 4 thyroid nodule meeting criteria for biopsy. Options were explained to the patient regarding further management. She elected to undergo the above procedure. Consent was filled out and signed. The below was then performed. Procedure Description: The patient was positioned in a supine position and prepped and draped in appropriate fashion. Ultrasound was used to localize the right-sided thyroid nodule. It had an exceedingly vascular perimeter, with very little vascularity within the nodule itself. There is central clearing to suggest cyst formation as well. 1% lidocaine with 1/100,000 epinephrine was injected in the skin and subcutaneous tissues over the medial aspect of the nodule and then a 25-gauge needle passed repeatedly into the thyroid nodule and attempt to obtain adequate biopsy. Biopsies were performed at the inferior, middle, and superior edges of the nodule. 2 of the passes had significant blood associated with them, and so were not looked at for cellular adequacy. The other 3 were examined and revealed only some colloid, and connective tissue. After a total of 5 passes, options were explained to the patient and the decision was made to wait and see what the CytoLyt prep indicates for cellularity. 2 additional passes were made for potential Afirma testing. Wound was inspected revealing relative hemostasis. A sterile dressing was applied and the patient was allowed to sit and then stand and ambulate. Her vital signs remained stable. She will remove the bandage within a couple of hours and not replace it. She will use ibuprofen or Tylenol for any discomfort. She will call if she does not hear from me within 1 week with regard to pathology results. She will call with any concerns or problems otherwise. She had no further questions. She is comfortable with this plan.
== END ==
PROVIDERS: PCP Family Medicine; Visit Provider Registered Nurse Maternal Newborn
DX: E04.1 Nontoxic single thyroid nodule (principal)
CPT/HCPCS: 10005; 76942; 88104

== ENCOUNTER 2023-06-04 05:07 | Outpatient (CLI) | payer MEDICARE, SELFPAY ==
[2023-06-04 13:08] LABS: Vitamin D 25 Total 88.7 ng/mL (30-100)
[2023-06-04 13:11] LABS: ALT 22 U/L (14-59); AST 24 U/L (15-37); Albumin 3.8 g/dL (3.4-5.0); Alkaline Phosphatase 64 U/L (46-116); Anion Gap 7.2 mmol/L (3-11); BUN 27 mg/dL (7-18); Bilirubin, Total 0.4 mg/dL (0.2-1.0); CO2 26.8 mmol/L (21.0-32.0); CREATININE 0.8 mg/dL (0.55-1.02); Calcium 9.5 mg/dL (8.5-10.1); Chloride 107 mmol/L (98-107); Estimated GFR 78.72 (mL/min/1.73m2); Glucose 94 mg/dL (74-106); Sodium 141 mmol/L (136-145); TSH (W/Ref FT4) 2.05 uIU/mL (0.36-3.74); Total Protein 7.8 g/dL (6.4-8.2)
[2023-06-04 13:12] LABS: Vitamin B12 > 2000 pg/mL (193-986)
[2023-06-04 17:40] LABS: T3, Total 125 ng/dL (97-169)
[2023-06-04 18:54] LABS: Parathyroid Hormone,Intact 57 pg/mL (19-88)
== END 2023-06-04 05:08 | disposition home or self-care (01) ==
PROVIDERS: PCP Family Medicine; Visit Provider Family Medicine
DX: I10 Essential (primary) hypertension (principal); E04.1 Nontoxic single thyroid nodule; E03.9 Hypothyroidism, unspecified
CPT/HCPCS: 36415; 80053; 82306; 82607; 83970; 84443; 84480

== ENCOUNTER 2023-11-03 10:59 | Emergency (ER) | payer MEDICARE, SELFPAY ==
[2023-11-03 11:05] VITALS: BP 118/70; PULSE 84; RESP 8; TEMP 36.5; O2SAT 99
--- NOTE | 2023-11-03 11:30 | DI.RAD_ITS ---
Exam(s) XR SHOULDER RT COMPLETE 2+V EXAM: XR SHOULDER RT COMPLETE 2+V CLINICAL HISTORY: Shoulder pain. TECHNIQUE: 2D digital imaging was performed. COMPARISON: No exams were available for comparison FINDINGS: Four views No evidence of fracture or dislocation nor abnormal soft tissue calcifications. Subacromial space ap pears unremarkable. Bone density normal. No osseous lesions. No degenerative changes in the glenoh umeral joint. Mild degenerative changes in the AC joint. IMPRESSION: No acute osseous findings in the right shoulder. DATA REPOSITORY: RADIATION DOSE DELIVERED:
--- NOTE | 2023-11-03 11:30 | DI.RAD_ITS ---
Exam(s) XR CERVICAL SP DURBIN TRAUMA 2-3V EXAM: XR CERVICAL SP DURBIN TRAUMA 2-3V CLINICAL HISTORY: Right arm radiculopathy. TECHNIQUE: 2D digital imaging was performed. COMPARISON: No exams were available for comparison FINDINGS: 3 views No evidence of acute fracture, listhesis, nor offset of the spinal laminar line. There is chronic disc space narrowing at C3-4 and C4-5 levels. Lesser amount of narrowing at C 6-7. There is some multilevel facet arthropathy. No facet malalignment. No cervical ribs. IMPRESSION: Multilevel degenerative disc disease. No fractures nor significant listhesis. DATA REPOSITORY: RADIATION DOSE DELIVERED:
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
[2023-11-03] MEDS: Cyclobenzaprine 10 MG TAB PO (11:48)
[2023-11-03] MEDS: Lidocaine 5% Patch 1 PATCH TP (11:49)
[2023-11-03 12:45] VITALS: BP 100/65; PULSE 74; RESP 16; TEMP 37; O2SAT 97
== END 2023-11-03 12:45 | disposition home or self-care (01) ==
LOC: ER 13:14
PROVIDERS: Emergency Provider Registered Nurse Emergency; PCP Family Medicine
DX: M50.123 Cervical disc disorder at C6-C7 level with radiculopathy (principal); Z87.891 Personal history of nicotine dependence
CPT/HCPCS: 99283; 72040; 73030

== ENCOUNTER 2024-01-14 02:23 | Outpatient (CLI) | payer MEDICARE, SELFPAY ==
--- NOTE | 2024-01-14 06:45 | DI.US_ITS ---
Exam(s) US THYROID EXAM: US THYROID CLINICAL HISTORY: Benign biopsy, assess for change,thyroid nodule,e04.1. TECHNIQUE: Ultrasound thyroid performed using standard protocol. COMPARISON: US US THYROID from 01/15/2023 US US NEEDLE LOCAL OTHER WO RAD from 01/20/2023 FINDINGS: ISTHMUS: 2.2 mm RIGHT LOBE: Size: 5.3 x 1.9 x 1.7 cm Echogenicity: Normal. Vascularity: Normal. Nodules: There is a stable nodule in the right lobe. It measures 2.4 x 1.4 x 1.9 cm. This compares to 2.4 x 1.3 x 1.8 cm on the prior examination. It is consistent with a TI rads level 4 nodule. Thi s nodule was biopsied on 01/20/2023. No new nodules are seen. LEFT LOBE: Size: 3.7 x 1.5 x 1.5 cm Echogenicity: Normal. Vascularity: Normal. Nodules: None. OTHER FINDINGS: None. IMPRESSION: Stable right thyroid nodule. DATA REPOSITORY:
== END 2024-01-14 02:43 ==
LOC: DI 02:23
PROVIDERS: PCP Family Medicine; Visit Provider Otolaryngology
DX: E04.1 Nontoxic single thyroid nodule (principal)
CPT/HCPCS: 76536

== ENCOUNTER 2024-08-08 02:38 | Outpatient (CLI) | payer MEDICARE, SELFPAY ==
--- NOTE | 2024-08-08 08:00 | DI.DEXA_ITS ---
Exam(s) XR DEXA BONE DENSITY W/WO PETER EXAM: XR DEXA BONE DENSITY W/WO PETER CLINICAL HISTORY: post menopausal SCREENING FOR OSTEOPOROSIS,Z78.0 TECHNIQUE: Routine DEXA evaluation of the lumbar spine, hip, or forearm. COMPARISON: CR XR DEXA BONE DENSITY W/WO PETER from 12/06/2021 FINDINGS: Performed on a [facility] unit. Lateral image: No compression fracture evident. Lumbar Spine total T-score: -0.5 which is within normal limits. Prior reading in November 2021 was -1.6 Hip total T-score:-3.1 which is osteoporosis range. Prior reading in November 2021 was identical Independent reading at the level of the femoral neck yields T-score of -2.4 Forearm total T-score: Apparently not performed because of left wrist fracture. IMPRESSION: Bone mineral density measures in the osteoporosis range for the hip.. Fracture risk is high. Note: Any spine fracture indicates 5x risk for subsequent spine fracture and 2x risk for subsequent h ip fracture. World Health Organization criteria for BMD interpretation classify patients: Normal...... T- Score at or above -1.0 Osteopenic... T- Score between -1.0 and -2.5 Osteoporosis... T-Score at or below -2.5
--- NOTE | 2024-08-08 08:00 | DI.MAMMO_ITS ---
Exam(s) MAMMO SCREENING EXAM: MAMMO SCREENING CLINICAL HISTORY: screening,Z12.39 TECHNIQUE: Bilateral full field digital CC and MLO mammographic images were obtained with 3D tomosyn thesis and utilizing computer aided detection (CAD). COMPARISON: Available for comparison. FINDINGS: Masses/Architectural Distortion: No suspicious masses or areas of architectural distortion are presen t. There is an intraparenchymal lymph node again seen in the upper outer quadrant of the left breast . Microcalcifications: No suspicious pleomorphic-type are seen. Skin Thickening/Nipple Retraction: None. IMPRESSION: 1. No significant interval change with no specific features of malignancy noted. 2. Unless there is more urgent need, screening mammography is recommended, as per [place] guidelines. BI-RADS Category 1 - Negative Breast Density - Category B - There are scattered areas of fibroglandular density. Breast density Category C or D implies that the patient has dense breast tissue. Dense breast tissue can make it harder to find cancer on a mammogram. Dense breast tissue is also associated with an incr eased risk of breast cancer. This information about the result of the mammogram report was provided to the patient to raise their awareness. Use this report when you speak with the patient about their risks for breast cancer, which includes their family history. At that time, you may recommend additional screening tests (Ultrasoun d or MRI) as these tests may add significant information. A negative radiographic report should not delay biopsy if a dominant or clinically suspicious mass is present. Up to ten percent of cancers are not identified on mammography. A negative report may reinforce clinical impression. Adenosis and dense breasts may obscure an underlying neoplasm. False positive reports average 6 to 10%. Patient will receive a letter notifying them of these results.
== END 2024-08-08 02:58 ==
LOC: DI 02:39
PROVIDERS: PCP Family Medicine; Visit Provider Family Medicine
DX: Z78.0 Asymptomatic menopausal state (principal); Z12.31 Encounter for screening mammogram for malignant neoplasm of breast; Z13.820 Encounter for screening for osteoporosis; M81.0 Age-related osteoporosis without current pathological fracture
CPT/HCPCS: 77063; 77067; 77080

== ENCOUNTER → 2025-01-12 02:03 | Outpatient (CLI) | payer MEDICARE, SELFPAY ==
--- NOTE | 2025-01-12 07:00 | DI.US_ITS ---
Exam(s) US THYROID EXAM: US THYROID CLINICAL HISTORY: Assess for change, benign biopsy,thyroid nodule,e04.1. TECHNIQUE: Ultrasound thyroid performed using standard protocol. COMPARISON: US US THYROID from 01/14/2024 FINDINGS: ISTHMUS: 2.6 mm RIGHT LOBE: Size: 5.4 x 1.6 x 1.6 cm Echogenicity: Normal. Vascularity: Normal. Nodules: There is a predominantly solid nodule in the right lobe measuring 2.2 x 1.3 x 1.8 cm. This compares to 2.4 x 1.4 x 1.9 cm on the prior examination. It is isoechoic and contains punctate echogenic foci. This is consistent with a TI rads level 4 nodule. This is unchanged. LEFT LOBE: Size: 5.3 x 1.4 x 1.4 cm Echogenicity: Normal. Vascularity: Normal. Nodules: None. OTHER FINDINGS: None. IMPRESSION: Stable right thyroid nodule. DATA REPOSITORY:
== END ==
PROVIDERS: PCP Family Medicine; Visit Provider Otolaryngology
DX: E04.1 Nontoxic single thyroid nodule (principal)
CPT/HCPCS: 76536

== ENCOUNTER 2025-01-20 02:36 | Outpatient (CLI) | payer MEDICARE, SELFPAY ==
[2025-01-20 14:33] LABS: Vitamin B12 1415 pg/mL (211-911)
== END 2025-01-20 02:37 | disposition home or self-care (01) ==
LOC: LBO 02:37
PROVIDERS: PCP Family Medicine; Visit Provider Family Medicine
DX: E53.8 Deficiency of other specified B group vitamins (principal)
CPT/HCPCS: 36415; 82607